=== PATIENT | female | born 1985 | race Caucasian/White ===

== ENCOUNTER 2017-04-30 21:27 | Emergency (ER) | payer MEDICAID, SELFPAY ==
[2017-04-30] MEDS ORDERED: Lidocaine 1% PF 5 ML VIAL ONE ×2 (22:01→22:21)
== END 2017-04-30 23:00 | disposition home or self-care (01) ==
LOC: ERS 21:27
DX: O99.89 Other specified diseases and conditions complicating pregnancy, childbirth and the puerperium (principal); N76.4 Abscess of vulva; O99.341 Other mental disorders complicating pregnancy, first trimester; F41.9 Anxiety disorder, unspecified; F32.9 Major depressive disorder, single episode, unspecified; O99.331 Smoking (tobacco) complicating pregnancy, first trimester; F17.200 Nicotine dependence, unspecified, uncomplicated; Z3A.01 Less than 8 weeks gestation of pregnancy
CPT/HCPCS: 56405; J2001

== ENCOUNTER 2017-05-01 18:17 | Emergency (ER) | payer MEDICAID | END 2017-05-01 19:50 | disposition home or self-care (01) | LOC: ERS 18:17 | DX: O99.89 Other specified diseases and conditions complicating pregnancy, childbirth and the puerperium (principal); Z48.817 Encounter for surgical aftercare following surgery on the skin and subcutaneous tissue; O99.341 Other mental disorders complicating pregnancy, first trimester; F41.9 Anxiety disorder, unspecified; F32.9 Major depressive disorder, single episode, unspecified; O99.331 Smoking (tobacco) complicating pregnancy, first trimester; F17.200 Nicotine dependence, unspecified, uncomplicated; Z3A.01 Less than 8 weeks gestation of pregnancy | CPT/HCPCS: 99282 ==

== ENCOUNTER 2017-05-06 11:39 | Emergency (ER) | payer MEDICAID ==
[2017-05-06 12:05] LABS: #Basophils 0.1 thou/uL (0.0-0.2); #Eosinphils 0.2 thou/uL (0.0-0.7); #Lymphocytes 3.5 thou/uL (1.20-3.40); #Monocytes 0.4 thou/uL (0.11-0.59); #Neutrophils 6.8 thou/uL (1.40-6.50); %Basophils 0.6 % (0.0-1.0); %Eosinophils 1.6 % (0.0-10.0); %Lymphocytes 31.8 % (21.0-51.0); %Monocytes 3.9 % (0.0-10.0); Mean Platelet Volume 6.4 fL (7.4-10.4); Red Blood Cell (RBC) Count 4.54 mill/uL (4.20-5.40); White Blood Cell (WBC) Count 10.9 thou/uL (4.8-10.8)
[2017-05-06 12:17] LABS: Bilirubin Negative (Negative); Blood, Urine Negative (Negative); Glucose, Urine (Dipstick) Negative (Negative); Ketone, Urine Negative (Negative); Nitrite Negative (Negative); Protein, Urine (Dipstick) Negative (Neg-Trace); Urobilinogen 0.2 mg/dL (0.2-1.0)
--- NOTE | 2017-05-06 15:47 | ULT ---
ULTRASOUND PELVIC TRANSVAGINAL WITH DOPPLER 05/06/17 HISTORY: Emergency exam. COMPARISON: Ultrasound pelvic 01/02/16. FINDINGS: The uterus measures 11.1 x 6 x 6.1 cm. Right ovary not seen. Left ovary measures 4.1 x 2.1 x 2.4 cm with adequate vascular flow. Gestational sac is present as well as a yolk sac and pole. No sub chorionic hemorrhage is present. Average ultrasound age is 7 weeks, 4 days. Estimated date of delivery is 12/19/17. The heart rate is documented at 152 beats per minute. IMPRESSION: Single viable intrauterine with average ultrasound age of 7 weeks, 4 day with estimated da te of delivery of 12/19/17. POS: [facility]
== END 2017-05-06 17:13 | disposition home or self-care (01) ==
LOC: ERS 11:39
DX: O20.0 Threatened abortion (principal); O99.331 Smoking (tobacco) complicating pregnancy, first trimester; F17.210 Nicotine dependence, cigarettes, uncomplicated; O99.341 Other mental disorders complicating pregnancy, first trimester; F41.9 Anxiety disorder, unspecified; F32.9 Major depressive disorder, single episode, unspecified; Z3A.01 Less than 8 weeks gestation of pregnancy
CPT/HCPCS: 36415; 76856; 81003; 84702; 85025; 86900; 86901

== ENCOUNTER 2017-07-21 08:00 | Outpatient (CLI) | payer OTHER | END 2017-07-21 08:01 | disposition home or self-care (01) | LOC: BICULT 08:00 | PROVIDERS: ATTEND Family Medicine | DX: Z34.92 Encounter for supervision of normal pregnancy, unspecified, second trimester (principal); Z3A.19 19 weeks gestation of pregnancy | CPT/HCPCS: 76805 ==

== ENCOUNTER 2017-12-08 12:41 | Outpatient (CLI) | payer OTHER ==
--- NOTE | 2017-12-08 15:23 | ULT ---
OBSTETRICAL UTLRASOUND: DATE: 12/08/17. COMPARISON: None. HISTORY: macrosomia, gestational diabetes. TECHNIQUE: Multiplanar, santiago scale sonographic imaging of the gravid uterus obtained. FINDINGS: Estimated length of the cervix is 2.9 cm. presentation is vertex. Three-vessel cord is visual ized. stomach and kidneys appear grossly unremarkable. heart rate is 131 b.p.m. Four-chamber heart view appears grossly unremarkable. Umbilical cord insertion and urinary bladder appear within normal limits. Amniotic fluid index is approximately 14.1 cm. Placenta is located on the left with no evidence for abruption or previa. spine and intracranial contents are not well assessed secondary to gestational age. Feta l nose and lips could not be visualized. Biometry: BPD 10.1 cm, 41 weeks 3 days FL 7.6 cm, 28 weeks 6 days On the basis of gestational age, abdominal circumference and head circumference measurements are subo ptimal. The average age based on ultrasound is 40 weeks 1 day with estimated weight of 4932 gr ams +/- 730 grams (10 pounds 14 ounces +/- 26 ounces). IMPRESSION: Unremarkable limited sonographic assessment demonstrates a live intrauterine gestation as above. POS: [facility]
== END 2017-12-08 12:42 | disposition home or self-care (01) ==
LOC: ULT 12:41
PROVIDERS: ATTEND Family Medicine
DX: O36.63X0 Maternal care for excessive fetal growth, third trimester, not applicable or unspecified (principal); O24.419 Gestational diabetes mellitus in pregnancy, unspecified control; Z3A.40 40 weeks gestation of pregnancy
CPT/HCPCS: 76805

== ENCOUNTER 2017-12-12 07:11 | Inpatient (IN) | payer OTHER ==
[2017-12-12] MEDS ORDERED: CEFAZOLIN/Water 2 GM/20 ML SYRINGE SLOW IVP SCH (07:45)
[2017-12-12] MEDS ORDERED: Promethazine HCl 25 MG/ML VIAL IM PRN ×2 (07:45→10:20)
[2017-12-12] MEDS ORDERED: Ondansetron HCl/PF 4 MG/2 ML Vial IVP PRN ×3 (07:45→13:32)
[2017-12-12] MEDS ORDERED: Bicitra 30 ML UDCUP PO SCH (07:45)
[2017-12-12 07:59] VITALS: BMI 40.4
[2017-12-12] MEDS ORDERED: Scopolamine 1.5 mg/72 hour Patch TOP SCH (08:15)
[2017-12-12 08:17] LABS: Hemoglobin 12.5 g/dL (12.0-16.0); Mean Corpuscular HGB CONC 32.4 g/dL (32.0-36.0); Mean Corpuscular Hemoglobin 27.2 pg (27.0-31.0); Mean Corpuscular Volume 83.9 fl (81.0-99.0); Platelet Count 225 thou/uL (130-400); RBC Distribution Width 13.5 % (11.5-14.5); White Blood Cell (WBC) Count 9.7 thou/uL (4.8-10.8)
[2017-12-12 08:54] LABS: Syphilis Antibody Nonreactive (Nonreactive); Syphilis Antibody Index 0.03 S/CO (<1.00 Non-Reactive)
[2017-12-12 08:55] LABS: HBSAg Index 0.25 S/CO (0-0.99); Hep B Surf Ag Non-Reactive S/CO (NonReactive)
[2017-12-12] MEDS: Lactated Ringer's 1,000 ML IV SCH ×2 (09:05→18:23)
[2017-12-12] MEDS ORDERED: Promethazine HCl 25 MG/ML VIAL ONE (09:11)
[2017-12-12] MEDS ORDERED: Oxytocin 10 UNITS/ML VIAL ONE (09:11)
[2017-12-12] MEDS ORDERED: Morphine PF 1 MG/ML SYR ONE (09:11)
[2017-12-12] MEDS ORDERED: PHENYLEPHRINE-NS 100 MCG/ML 10 ML SYRINGE ONE ×3 (09:11→17:55)
[2017-12-12] MEDS ORDERED: Ketorolac Tromethamine 30 MG/ML VIAL ONE ×2 (09:11→17:55)
[2017-12-12] MEDS ORDERED: Dexamethasone 4 mg/ml Vial ONE (09:11)
[2017-12-12] MEDS ORDERED: Lidocaine 1% PF 5 ML VIAL ONE (09:13)
[2017-12-12] MEDS ORDERED: Bupivacaine 0.75% W/DEXTROSE 8.25% 2 ML AMP ONE ×2 (09:13)
[2017-12-12] MEDS ORDERED: ePHEDrine/0.9% NaCl/PF SYRINGE 50 mg/10 ml ONE ×2 (09:49→17:55)
[2017-12-12] MEDS ORDERED: diphenhydrAMINE 50 MG/ML VIAL ONE ×2 (09:55→17:55)
[2017-12-12] MEDS ORDERED: HYDROmorphone 2 MG/ML VIAL SLOW IVP PRN (10:20)
[2017-12-12] MEDS ORDERED: diphenhydrAMINE 50 MG/ML VIAL IVP PRN (10:20)
[2017-12-12] MEDS ORDERED: Eucerin (Mineral Oil/Petrolatum,White) 30 gm Jar TOP PRN (10:20)
[2017-12-12] MEDS ORDERED: Naloxone HCl 0.4 mg/ml Vial IV PRN (10:20)
[2017-12-12] MEDS ORDERED: Promethazine HCl 25 MG SUPP PR PRN (10:20)
[2017-12-12] MEDS ORDERED: Meperidine HCl/PF 25 MG/ML VIAL SLOW IVP PRN (10:20)
[2017-12-12] MEDS ORDERED: Naloxone HCl 0.4 mg/ml Vial IVP PRN ×2 (10:20)
[2017-12-12] MEDS ORDERED: Communication Order-Pharmacy FS SCH (10:30)
[2017-12-12] MEDS ORDERED: Lactated Ringer's 1,000 ML IV SCH (10:45)
--- NOTE | 2017-12-12 11:20 | OP ---
DATE OF SERVICE: 12/12/2017 PREOPERATIVE DIAGNOSIS: Term intrauterine with previous section and gestational d iabetes for repeat section. POSTOPERATIVE DIAGNOSES: Term intrauterine with previous section and gestational diabetes for repeat section, status post delivery. PROCEDURE PERFORMED: Repeat low transverse section. SURGEON: Trista Hurst M.D. GRINDER SET UP OPERATOR THREAD: Kimberly Garg M.D. ANESTHESIA: Spinal anesthetic. PROCEDURE IN DETAIL: After adequate spinal anesthetic, the patient was placed in supine position. A wedge was placed under her right flank. A Hale catheter was placed and the abdomen was prepped and draped in the usual sterile technique. A Pfannenstiel incision was made through the old scar. Subc utaneous tissue opened with sharp dissection. Fascia opened with sharp dissection. Peritoneum opene d with sharp and blunt dissection. It was noted that the abdomen was filled with a gravid uterus. A n Dawson O retractor was placed without difficulty. A bladder flap was incised inferiorly and a low transverse incision was made on the uterus. Membranes were ruptured and clear fluid was encountered. Noted there was an occult cord just prior to delivery of the head, which was not reducible. The in ladi was from vertex presentation without difficulty. Infant breathed and cried spontaneously. Cord was clamped and cut after approximately 30 seconds and the infant was dried and handed to the [facility] o f the neonatology team. Cord blood was obtained. The placenta delivered manually and appeared intac t. The uterus was wiped clean with a wet lap and an additional ring forceps was used to dilate the c ervix and this ring forcep was taken external to the sterile field. Ring forceps were then used to g rasp the hysterotomy edges which were then closed in continuous fashion using 0 Monocryl. Hemostasis was adequate. The Dawson O retractor was removed. The peritoneal edges were unable to be reapproxi mated. Noted there was no bleeding from the uterus, bladder flap or peritoneal edges. The fascia wa s then closed in continuous fashion using 0 Vicryl suture. Sponge and instrument counts were correct . The subcutaneous tissue was closed using 2-0 plain and 4-0 Monocryl was used to close the skin in a subcuticular fashion. Patient tolerated the procedure well to go to the recovery room in good cond ition. It was noted that the baby is a viable male , weight 11 pounds 14 ounces, Apgars 8 at 1 minute, 9 at 5 minutes. He went to the nursery in good condition. ESTIMATED BLOOD LOSS: 600 mL. No complications.
--- NOTE | 2017-12-12 11:58 | ADD-OP ---
ADDENDUM DATE OF SERVICE: 12/12/2017 I was present and scrubbed to assist the uncomplicated repeat with Dr. Trista Hurst. Please see her note for full details.
[2017-12-12] MEDS ORDERED: Lanolin Ointment 7 GM TUBE TOP PRN (13:32)
[2017-12-12] MEDS ORDERED: diphenhydrAMINE 25 MG CAP PO PRN (13:32)
[2017-12-12] MEDS ORDERED: Acetaminophen 325 MG TAB PO PRN (13:32)
[2017-12-12] MEDS: Ondansetron HCl/PF 4 MG/2 ML Vial IVP PRN ×2 (14:10→19:52)
[2017-12-12] MEDS ORDERED: Dexamethasone 20 MG/5 ML VIAL ONE (17:55)
[2017-12-12] MEDS ORDERED: Ondansetron HCl/PF 4 MG/2 ML Vial ONE (17:55)
[2017-12-12] MEDS: Ketorolac Tromethamine 30 MG/ML VIAL IVP PRN (18:21)
[2017-12-12] MEDS ORDERED: Acetaminophen/Codeine 30-300mg Tablet PO PRN (20:30)
[2017-12-12] MEDS: Docusate Calcium (SURFAK) 240 MG CAP PO SCH (23:21)
[2017-12-12] MEDS: Ferrous Sulfate 325 MG TAB PO SCH (23:21)
[2017-12-13] MEDS ORDERED: Sodium Chloride 0.9% 10 ML ONE (00:28)
[2017-12-13] MEDS: Ketorolac Tromethamine 30 MG/ML VIAL IVP PRN (00:30)
[2017-12-13 05:17] LABS: Hemoglobin 10.3 g/dL (12.0-16.0); Mean Corpuscular HGB CONC 33.5 g/dL (32.0-36.0); Mean Corpuscular Hemoglobin 28.1 pg (27.0-31.0); Mean Corpuscular Volume 83.7 fl (81.0-99.0); Mean Platelet Volume 7.2 fL (7.4-10.4); Platelet Count 200 thou/uL (130-400); RBC Distribution Width 13.5 % (11.5-14.5); Red Blood Cell (RBC) Count 3.67 mill/uL (4.20-5.40); White Blood Cell (WBC) Count 11.6 thou/uL (4.8-10.8)
[2017-12-13] MEDS: HYDROcodone/Acetaminophen 5/325 mg Tablet PO PRN ×3 (09:15→20:42)
[2017-12-13] MEDS: Docusate Calcium (SURFAK) 240 MG CAP PO SCH ×2 (09:15→21:45)
[2017-12-13] MEDS: Ferrous Sulfate 325 MG TAB PO SCH ×2 (09:15→21:46)
[2017-12-13] MEDS: Prenatal Vitamin 1 TAB PO SCH (09:15)
[2017-12-13] MEDS: Lactated Ringer's 1,000 ML IV SCH ×2 (13:20→20:06)
[2017-12-13] MEDS: Ibuprofen 800 MG TAB PO SCH ×2 (14:43→21:45)
[2017-12-13] MEDS: Simethicone Chewable 80 MG TAB PO PRN (20:42)
[2017-12-14] MEDS: HYDROcodone/Acetaminophen 5/325 mg Tablet PO PRN ×2 (02:14→17:12)
[2017-12-14] MEDS: Lactated Ringer's 1,000 ML IV SCH ×3 (04:16→17:32)
[2017-12-14] MEDS: Ibuprofen 800 MG TAB PO SCH ×3 (05:23→22:50)
[2017-12-14] MEDS: Simethicone Chewable 80 MG TAB PO PRN ×2 (06:37→14:48)
[2017-12-14] MEDS: Prenatal Vitamin 1 TAB PO SCH (10:33)
[2017-12-14] MEDS: Docusate Calcium (SURFAK) 240 MG CAP PO SCH ×2 (10:33→22:50)
[2017-12-14] MEDS: Ferrous Sulfate 325 MG TAB PO SCH ×2 (10:34→22:12)
[2017-12-14] MEDS ORDERED: Bisacodyl 10 MG SUPP PR PRN (14:56)
[2017-12-15] MEDS: HYDROcodone/Acetaminophen 5/325 mg Tablet PO PRN (00:57)
[2017-12-15] MEDS: Lactated Ringer's 1,000 ML IV SCH ×2 (02:54→13:52)
[2017-12-15] MEDS: Ibuprofen 800 MG TAB PO SCH ×2 (05:00→13:53)
[2017-12-15] MEDS: Prenatal Vitamin 1 TAB PO SCH (09:17)
[2017-12-15] MEDS: Ferrous Sulfate 325 MG TAB PO SCH (09:17)
[2017-12-15] MEDS: Docusate Calcium (SURFAK) 240 MG CAP PO SCH (09:17)
[2017-12-15 09:30] VITALS: BP 131/68; TEMP 97.9
== END 2017-12-15 14:00 | disposition home or self-care (01) | DRG 766 ==
LOC: L&D 07:11 → 3SW 13:09
PROVIDERS: ADMIT Family Medicine; ATTEND Family Medicine
PROC: 10D00Z1 Extraction of Products of Conception, Low, Open Approach (ICD-10-PCS; principal; 2017-12-12)
DX: O34.211 Maternal care for low transverse scar from previous cesarean delivery (principal); O24.425 Gestational diabetes mellitus in childbirth, controlled by oral hypoglycemic drugs; Z3A.39 39 weeks gestation of pregnancy; Z37.0 Single live birth; Z79.84 Long term (current) use of oral hypoglycemic drugs; O36.63X0 Maternal care for excessive fetal growth, third trimester, not applicable or unspecified
CPT/HCPCS: 36415; 51702; 85027; 86780; 86850; 86900; 86901; 87340; A4216; J1100; J1200; J1885; J2001; J2274; J2405; J2550; J2590; J3490